=== PATIENT | female | born 1985 | race Caucasian/White ===

== ENCOUNTER → 2016-06-17 | Outpatient (CLI) | payer OTHER ==
[~2016-06-17] VITALS: Ht 177.8 cm; Wt 63.5 kg
[~2016-06-17] MED LIST: CARAFATE 1 GM TA1 G1 PO; IBUPROFEN 400400 M1 PO; IBUPROFEN 800800 M1 PO; K-DUR 20 MEQ T20 MEQ PO; NORCO 5-325 TA1 EACH; PROTONIX40 M1 PO; SERTRALINE HCL50 MG PO; TIZANIDINE HCL6 MG PO; TRAMADOL HCL50 MG PO
--- NOTE | ~2016-06-17 | P ---
[facility] [place] [address] PROCEDURE REPORT Name: MARIELOS AVINA Room #: [facility] [id number] Admission: 06/17/16 Attend Phys: Kenyon Gamez Discharge: Date of : 81 Report #: [id number] THIS REPORT FOR: //name// CC: Kenyon Luis MD DATE OF SERVICE: 06/17/2016 PROCEDURE PERFORMED: Colonoscopy with biopsies. HISTORY OF PRESENT ILLNESS: The patient is a 30-year-old female with history of intermittent diarrhea and loose stools as well as bright red blood per rectum and mucous at times. No previous history of colonoscopy. 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 This was treated with cautery and Endoclip; repeat upper endoscopy showed well healed area. She denies any melanotic stools. DESCRIPTION OF PROCEDURE: The risks and benefits of the procedure were explained to the patient, those risks including but not limited to bleeding, perforation, the risk of sedation. She understood these risks and gave informed consent. Sedation was given using propofol per anesthesia. Next, a digital rectal exam was initially performed, which was normal. Next, using a standard Infotrieveinon colonoscope, the scope was placed in the patient's anus and advanced under direct vision to the cecum. The overall prep was excellent. The cecum and ileocecal valve were normal in appearance. Terminal ileum was intubated and normal in appearance. The ascending, transverse, descending and sigmoid colon were all normal. The rectal mucosa was normal. There was no evidence of colitis or inflammation throughout the exam. Random biopsies were obtained to rule out the possibility of microscopic colitis. On retroflexion, small nonbleeding internal hemorrhoids were noted. Close examination of the anal canal showed a possible tiny anal fissure, no bleeding. The scope was then withdrawn and the procedure terminated. The patient tolerated the procedure well. IMPRESSION: 1. Small nonbleeding internal hemorrhoids. 2. Tiny anal fissure, possible source of recent bleeding. 3. Otherwise, normal colonoscopy. RECOMMENDATIONS: 1. Await biopsy results. 2. Recommend trial of probiotics. 3. ____ on a p.r.n. basis and Analpram p.r.n. [address] [address] PROCEDURE REPORT Name: MARGARETH AVINAHLEEN Room #: REG KATRIN Clarke#: [id number] Admission: 06/17/16 Attend Phys: Kenyon Gamez Discharge: Date of : 81 Report #: [id number] Thank you for allowing me to participate in her care. <ELECTRONICALLY SIGNED> By: Kenyon Johnson MD 06/18/16 1433 0930 1322 Kenyon Johnson MD /nt
--- NOTE | ~2016-06-17 | S ---
[facility] [place] [address] SURGICAL PATH RPT PROCEDURE Name: MARIELOS AVINA Room #: REG KATRIN Richards.#: [id number] Admission: 06/17/16 Date of : 81 Discharge: Report #: [id number] Path Case #: [id number] PATHOLOGY REPORT COLLECTION DATE: 06/17/2016 RECEIVED DATE: 06/17/2016 SUBMITTING PHYS: Dr. Kenyon Johnson OTHER PHYS: Dr. Gayle Luis SPECIMEN(S) RECEIVED: A.Random colon bx * * * * * * * * * * * * FINAL DIAGNOSIS: Large intestinal mucosa, random colon, endoscopic biopsy: - Mild focal active colitis. (Please see comment.) - Negative for dysplasia or malignancy. COMMENT: Examination shows a mildly increased cellularity of the lamina propria along with an occasional focus of cryptitis. Thrombi are not identified with any of the vessels. There is no evidence of significant fibrosis within lamina propria present. The crypts appear uniformly distributed without any architectural abnormalities. There are no viral inclusions present. There are no granulomata present. The subepithelial collagen layer is not thickened. There is no increase in intraepithelial lymphocytosis. Overall, the findings are suggestive of mild active colitis with the differential diagnosis including early inflammatory bowel disease, infectious-type colitis, early diverticulitis, as well as medication induced injury. Please correlate clinically and follow-up as indicated. PATHOLOGIST: Donna Haider M.D. REPORT ELECTRONICALLY SIGNED BY: Donna Haider M.D. DATE/TIME: 06/19/2016 16:36 * * * * * * * * * * * * GROSS PATHOLOGY: Received in formalin labeled "Marielos Avina, random colon biopsy, R/O microscopic colitis," are seven segments of franklin soft tissue measuring 1.0 x 0.9 x 0.2 cm in aggregate dimensions and ranging from 0.2 to 0.5 cm in maximum dimension. The specimen is submitted entirely in cassette A1. (CAA; 06/18/2016) [address] [address] SURGICAL PATH RPT PROCEDURE Name: MARIELOS AVINA Room #: REG CL Susie.#: [id number] Admission: 06/17/16 Date of : 81 Discharge: Report #: [id number] Path Case #: [id number] CLINICAL HISTORY: R/O microscopic colitis INITIAL CPT CODE(S): A; 97401 Professional services performed by [facility] [address], [place] [address] Technical services performed by [facility] at [address] [place] [address], [place] [address]. [facility] [address] [place] [id number] PHONE: [phone] DIRECTOR: Martin Caro M.D. * * * END OF REPORT * * *
== END ==
LOC: GI 07:59
DX: K52.89 Other specified noninfective gastroenteritis and colitis (principal); K64.8 Other hemorrhoids; F41.8 Other specified anxiety disorders
CPT/HCPCS: 62110; 62900